=== PATIENT | female | born 1970 | race Caucasian/White ===

== ENCOUNTER 2023-09-16 08:40 | Day surgery (SDC) | payer BC ==
[~2023-09-16] VITALS: Ht 172.7 cm; Wt 99.3 kg
[~2023-09-16 08:40] MED LIST: DIGO0.123 PO; FLEC25TA PO; FLUTISP; LEVO88TA3 PO; MAGN400T33 PO; METO1TAB32 PO; TOPI25TA10 PO; UBIQ200C3 PO; UBIQ200C4 PO; VITA1CAP25 PO
[2023-09-16] MEDS: NS 1,000 ML IV ONE (09:05)
[2023-09-16] MEDS ORDERED: propofoL 500 MG/50 ML VIAL As Ordered ONE (11:15)
[2023-09-16 11:20] VITALS: TEMP 96.8
[2023-09-16 11:45] VITALS: BP 123/58; O2SAT 99
== END 2023-09-16 11:57 | disposition home or self-care (01) ==
LOC: M OPP 08:40
PROVIDERS: ATTEND Internal Medicine Gastroenterology
DX: Z12.11 Encounter for screening for malignant neoplasm of colon (principal); D12.6 Benign neoplasm of colon, unspecified; K64.8 Other hemorrhoids; K64.4 Residual hemorrhoidal skin tags; K57.30 Diverticulosis of large intestine without perforation or abscess without bleeding; I48.91 Unspecified atrial fibrillation; Z87.891 Personal history of nicotine dependence; Z98.84 Bariatric surgery status; Z79.51 Long term (current) use of inhaled steroids; Z79.899 Other long term (current) drug therapy

== ENCOUNTER → 2025-01-27 | Outpatient (REF) | payer BC ==
[~2025-01-27] MED LIST changes: +TOPI-256 PO; -TOPI25TA10 PO
[2025-01-27 17:32] LABS: APPEARANCE, URINE CLEAR (CLEAR); BACTERIA, URINE AUTO NEGATIVE (NEGATIVE); BILIRUBIN, URINE AUTO NEGATIVE (NEGATIVE); BLOOD, URINE BLOOD NEGATIVE (NEGATIVE); GLUCOSE, URINE (UA) AUTO NEGATIVE (NEGATIVE); KETONE, URINE AUTO NEGATIVE (NEGATIVE); LEUKOCYTE ESTERASE, URINE AUTO NEGATIVE (NEGATIVE); NITRITE, URINE AUTO NEGATIVE (NEGATIVE); PROTEIN, URINE AUTO NEGATIVE (NEGATIVE); RBC, URINE AUTO 1 /HPF (0-3); SPECIFIC GRAVITY URINE AUTO 1.005 (1.002-1.035); SQUAMOUS EPITHELIAL CELL UR AU 0 /HPF (0-6); UROBILINOGEN, URINE AUTO 0.2 mg/dL (0.0-2.0); WBC, URINE AUTO 0 /HPF (0-3)
== END ==
LOC: M SMT 16:51
PROVIDERS: ATTEND Nurse Practitioner Family
DX: N39.41 Urge incontinence (principal)

== ENCOUNTER 2025-05-19 09:25 | Day surgery (SDC) | payer BC ==
[~2025-05-19] VITALS: Ht 172.7 cm; Wt 99.1 kg
[~2025-05-19 09:25] MED LIST changes: +BIOT5TAB5 PO; +CALCTAB49 PO; +FLEC100T27 PO; +FURO20TA2 PO; +LEVO100T5 PO; +POTA10CA70 PO; +ROSU5TAB49 PO; +SEMA0.252
[2025-05-19] MEDS: LR 1,000 ML IV SCH (10:00)
[2025-05-19] MEDS ORDERED: MIDAZOLAM INJ 2 MG/2 ML VIAL As Ordered ONE (10:15)
[2025-05-19] MEDS ORDERED: ONDANSETRON 4MG/2ML VIAL As Ordered ONE (10:16)
[2025-05-19] MEDS ORDERED: LIDOCAINE 2% 100 MG/5 ML SDV (FOR ANES.) As Ordered ONE (10:16)
[2025-05-19] MEDS ORDERED: dexAMETHasone 4 MG/ML 1 ML VIAL As Ordered ONE (10:16)
[2025-05-19] MEDS ORDERED: ACETAMINOPHEN 1000MG/100ML IV BAG As Ordered ONE (10:16)
[2025-05-19] MEDS: METHYLENE BLUE 0.5% (5 MG/ML) 10 ML AMP As Ordered ONE (10:20)
[2025-05-19] MEDS: ESTROGENS VAGINAL CREAM 30 GM As Ordered ONE (10:21)
[2025-05-19] MEDS: ceFAZolin SOD 2 GM IV ONCE IV ONE (10:41)
[2025-05-19] MEDS ORDERED: PHENYLephrine 500MCG 5ML (100MCG/ML) SYRINGE As Ordered ONE (10:53)
[2025-05-19] MEDS: LIDOCAINE W/EPINEPHrine 1% 20 ML VIAL As Ordered ONE (11:29)
[2025-05-19] MEDS ORDERED: PHENYLEPHRINE 10MG/ML 1ML VIAL As Ordered ONE (11:34)
[2025-05-19] MEDS ORDERED: HYDR-3713 PO (12:36)
[2025-05-19] MEDS ORDERED: CEPH500C PO (12:36)
[2025-05-19] MEDS ORDERED: MORPHINE 2 MG/ML 1 ML VIAL IV PRN (12:50)
[2025-05-19] MEDS ORDERED: HYDROMORPHONE HCL 0.5 MG/0.5 ML SYRINGE IV PRN (12:50)
[2025-05-19] MEDS: ONDANSETRON 4MG/2ML VIAL IV PRN (13:18)
[2025-05-19 13:21] VITALS: BP 125/74; TEMP 97.4; O2SAT 97
== END 2025-05-19 14:09 | disposition home or self-care (01) ==
LOC: M SDC 09:25
PROVIDERS: ATTEND Urology
DX: N81.10 Cystocele, unspecified (principal); I48.91 Unspecified atrial fibrillation; E03.9 Hypothyroidism, unspecified; E78.00 Pure hypercholesterolemia, unspecified; Z79.899 Other long term (current) drug therapy; Z79.890 Hormone replacement therapy; Z95.0 Presence of cardiac pacemaker; Z98.84 Bariatric surgery status
CPT/HCPCS: 57240; 88302; J0131; J0688; J1100; J2250; J2371; J2405; J3010

== ENCOUNTER 2025-06-02 00:57 | Observation (INO) | payer BC ==
[2025-06-02] VITALS (7 sets, daily range): BP systolic 99–127; BP diastolic 54–66; TEMP 98–98.7; O2SAT 95–100
[~2025-06-02] VITALS: Ht 172.7 cm; Wt 99.0 kg
[~2025-06-02 00:57] MED LIST changes: +CEPH500C PO; +HYDR-3713 PO
[2025-06-02] MEDS ORDERED: VANCOMYCIN HCL 1,000 MG, VIAL MATE ADAPTER 1 EACH in NS 250 ML IV SCH (03:35)
[2025-06-02 04:02] LABS: VENOUS BASE EXCESS -2.5 (-2.0-2.0); VENOUS HCO3 22.3 MMOL/L (23.0-27.0); VENOUS O2 SATURATION 91.6 % (60.0-80.0); VENOUS PARTIAL PRESSURE CO2 39.0 mmHg (38.0-50.0); VENOUS PARTIAL PRESSURE O2 64.7 mmHg (30.0-50.0); VENOUS PH 7.376 UNITS (7.330-7.430); VENOUS STANDARD HCO3 22.2 MMOL/L; VENOUS TOTAL CO2 23.5 MMOL/L (24.0-28.0)
[2025-06-02] MEDS: LR 1,000 ML IV SCH (04:02)
[2025-06-02 04:08] LABS: BASO # 0.0 10^3/uL (0.0-0.2); BASO % 0.2 % (0.0-1.0); EOS # 0.2 10^3/uL (0.0-0.5); EOS % 1.1 % (0.0-3.0); LYMPH # 2.5 10^3/uL (1.5-5.0); LYMPH % 18.7 % (24.0-44.0); MONO # 0.9 10^3/uL (0.0-0.8); MONO % 6.7 % (2.0-8.0); NEUTROPHILS # 9.8 10^3/uL (1.5-8.5); NEUTROPHILS % 73.0 % (36.0-66.0); PLATELET COUNT, AUTOMATED 293 10^3/uL (150-450)
[2025-06-02 04:31] LABS: INR 1.09
[2025-06-02 04:47] LABS: KETONE, URINE AUTO RFX NEGATIVE (NEGATIVE); NITRITE, URINE AUTO RFX NEGATIVE (NEGATIVE); RBC, URINE AUTO RFX 5 /HPF (0-3); SQUAM EPITHELIAL CELL UR AURFX 0 /HPF (0-6)
[2025-06-02 05:04] LABS: LEUKOCYTE ESTERASE UR AUTO RFX 3+ (NEGATIVE); WBC, URINE AUTO RFX 44 /HPF (0-3)
[2025-06-02] MEDS: PIPERACILLIN/TAZOBACTAM SOD 4.5 GM in DEXTROSE 5% (D5W) ADV/MINI-BAG 50 ML IV SCH (08:09)
[2025-06-02 08:54] LABS: CALCIUM LEVEL 8.7 MG/DL (8.5-10.1); CARBON DIOXIDE LEVEL 23 MMOL/L (20-31); CHLORIDE LEVEL 107 MMOL/L (98-107); CREATININE FOR GFR 0.76 MG/DL (0.55-1.30); GLOMERULAR FILTRATION RATE > 90.0 (>51); POTASSIUM SERUM 3.6 MMOL/L (3.5-5.1); SODIUM LEVEL 140 MMOL/L (136-145)
[2025-06-02] MEDS ORDERED: HOME MED LIST COMPLETE! XX SCH (09:10)
[2025-06-02] MEDS: ACETAMINOPHEN 325 MG TAB PO PRN (09:53)
[2025-06-02] MEDS: MAGNESIUM OXIDE 400 MG TAB PO SCH (12:50)
[2025-06-02] MEDS: LEVOTHYROXINE 100 MCG TABLET (0.1 MG) PO SCH (12:50)
[2025-06-02] MEDS: DIGOXIN 0.125 MG TAB PO SCH (12:51)
[2025-06-02] MEDS: PIPERACILLIN/TAZOBACTAM SOD 3.375 GM in DEXTROSE 5% (D5W) ADV/MINI-BAG 50 ML IV SCH (14:12)
[2025-06-02] MEDS: METOPROLOL SUCC. 25 MG *XL* TAB PO SCH (20:03)
[2025-06-02] MEDS: ROSUVASTATIN 10 MG TAB PO SCH (20:03)
[2025-06-02] MEDS: TOPIRAMATE 25 MG TAB PO SCH (20:03)
[2025-06-02] MEDS: FLECAINIDE 50 MG TABLET PO SCH (20:04)
[2025-06-03 03:57] VITALS: BP 102/51; TEMP 98; O2SAT 93
[2025-06-03 06:30] LABS: BASO # 0.0 10^3/uL (0.0-0.2); BASO % 0.8 % (0.0-1.0); EOS # 0.3 10^3/uL (0.0-0.5); EOS % 5.5 % (0.0-3.0); LYMPH # 1.4 10^3/uL (1.5-5.0); LYMPH % 25.9 % (24.0-44.0); MONO # 0.4 10^3/uL (0.0-0.8); MONO % 6.8 % (2.0-8.0); NEUTROPHILS # 3.2 10^3/uL (1.5-8.5); NEUTROPHILS % 60.6 % (36.0-66.0); PLATELET COUNT, AUTOMATED 280 10^3/uL (150-450)
[2025-06-03 07:04] LABS: CALCIUM LEVEL 8.8 MG/DL (8.5-10.1); CARBON DIOXIDE LEVEL 26 MMOL/L (20-31); CHLORIDE LEVEL 109 MMOL/L (98-107); CREATININE FOR GFR 0.77 MG/DL (0.55-1.30); GLOMERULAR FILTRATION RATE > 90.0 (>51); POTASSIUM SERUM 4.3 MMOL/L (3.5-5.1); SODIUM LEVEL 142 MMOL/L (136-145)
[2025-06-03] MEDS ORDERED: METR-265 PO (09:30)
[2025-06-03] MEDS ORDERED: CEFD1CAP9 PO (09:30)
[2025-06-03] MEDS: ENOXAPARIN 40 MG/0.4 ML SYRINGE (J1650 PER 10MG) SC SCH (09:36)
[2025-06-03] MEDS: PIPERACILLIN/TAZOBACTAM SOD 3.375 GM in DEXTROSE 5% (D5W) ADV/MINI-BAG 50 ML IV SCH (09:37)
[2025-06-03] MEDS: FLUZONE VACCINE TRI PF(25-26) 0.5ML SYRINGE IM.IMMUN ONE (09:40)
== END 2025-06-03 12:33 | disposition home or self-care (01) ==
LOC: M PCU 03:00 → INTOOBSV 03:00 → M MSPAV 21:17
PROVIDERS: ADMIT Student in an Organized Health Care Education/Training Program; ATTEND Internal Medicine
DX: T81.590A Other complications of foreign body accidentally left in body following surgical operation, initial encounter (principal); Y73.3 Surgical instruments, materials and gastroenterology and urology devices (including sutures) associated with adverse incidents; N76.0 Acute vaginitis; D72.829 Elevated white blood cell count, unspecified; N81.10 Cystocele, unspecified; R10.20 Pelvic and perineal pain unspecified side; R51.9 Headache, unspecified; I49.5 Sick sinus syndrome; I50.30 Unspecified diastolic (congestive) heart failure; I48.0 Paroxysmal atrial fibrillation; Z95.0 Presence of cardiac pacemaker; E03.9 Hypothyroidism, unspecified; E78.5 Hyperlipidemia, unspecified; Z98.84 Bariatric surgery status; Z90.49 Acquired absence of other specified parts of digestive tract; Z79.890 Hormone replacement therapy
CPT/HCPCS: 36415; 71045; 80048; 81001; 82150; 82803; 83605; 84145; 85025; 85610; 85652; 85730; 86140; 86850; 86900; 86901; 87040; 87086; 96365; 96372; 96376; J1650; J2543